=== PATIENT | female | born 1995 | race Two or more races ===

== ENCOUNTER 2022-12-13 10:29 | Emergency (ER) | payer BC, OTHER ==
[2022-12-13 10:38] VITALS: BP 141/85
--- NOTE | 2022-12-13 11:11 | ED Physician Documentation ---
PD HPI URI - Stated complaint Stated Complaint: R EAR PX - Chief complaint Chief Complaint: Heent - History obtained from History obtained from: Patient - Additional information Additional information: Has hx recurrent otitis Last 6 months ago Visiting from [place] 2 days severe R ear pain, congestion, muffled hearing no fever \ PD PAST MEDICAL HISTORY - Present Medications Home Medications: Ambulatory Orders Medication Instructions Recorded Confirmed HYDROcod/ACETAM 5/325 [[place] 5/325] 1 - 2 tab PO Q6H PRN #15 tablet 12/13/22 cephALEXin [Keflex] 500 mg PO Q6H #28 cap 12/13/22 - Allergies Allergies/Adverse Reactions: Allergies Allergy/AdvReac Type Severity Reaction Status Date / Time Penicillins Allergy Anaphylaxis Verified 12/13/22 10:38 trazodone Allergy Unknown Verified 12/13/22 10:38 PD ED PE NORMAL - Vitals Vital signs reviewed: Yes - General General: Alert and oriented X 3, No acute distress - HEENT HEENT: Other (severe ROM, L \TM nl) - Neck Neck: Supple, no meningeal sign, No bony TTP - Neuro Neuro: Alert and oriented X 3, Normal speech Results - Vitals Vitals: Vital Signs - 24 hr 12/13/22 10:36 Temperature 37 C Heart Rate 76 Respiratory 16 Rate Blood Pressure 141/85 H O2 Saturation 95 Oxygen O2 Source Room air Departure - Departure Disposition: 01 Home, Self Care Clinical Impression: ROM (right otitis media) Qualifiers: Otitis media type: suppurative Chronicity: acute Recurrence: recurrent Spontaneous tympanic membrane rupture: without spontaneous rupture Qualified Code(s): H66.004 - Acute suppurative otitis media without spontaneous rupture of ear drum, recurrent, right ear Condition: Good Record reviewed to determine appropriate education?: Yes Instructions: ED Otitis Media Acute Adult Prescriptions: cephALEXin [Keflex] 500 mg PO Q6H #28 cap HYDROcod/ACETAM 5/325 [[place] 5/325] 1 - 2 tab PO Q6H PRN #15 tablet PRN Reason: Pain Comments: I sent your prescription electronically to [facility] in [place]. Followup with ENT on return home Return if worse Do not drink or drive while taking hydrocodone./
== END 2022-12-13 11:14 | disposition home or self-care (01) ==
LOC: ED 10:29
DX: H66.004 Acute suppurative otitis media without spontaneous rupture of ear drum, recurrent, right ear (principal)
CPT/HCPCS: 99282; 99283